=== PATIENT | male | born 1985 | race Caucasian/White ===

== ENCOUNTER → 2020-08-22 09:56 | Outpatient (BNVA) | payer SELFPAY | PROVIDERS: Visit Provider Internal Medicine | DX: F11.20 Opioid dependence, uncomplicated (principal); Z51.81 Encounter for therapeutic drug level monitoring | CPT/HCPCS: 80305; 99212 ==

== ENCOUNTER → 2020-09-11 10:59 | Outpatient (BNVA) | payer OTHER, SELFPAY | PROVIDERS: Visit Provider Internal Medicine | DX: F11.20 Opioid dependence, uncomplicated (principal) | CPT/HCPCS: 80305; 99211 ==

== ENCOUNTER → 2020-09-25 10:04 | Outpatient (BNVA) | payer OTHER, SELFPAY | PROVIDERS: PCP Internal Medicine; Referring Provider Internal Medicine; Visit Provider Internal Medicine | DX: F11.20 Opioid dependence, uncomplicated (principal) | CPT/HCPCS: 80305; 99211 ==

== ENCOUNTER → 2020-10-09 10:23 | Outpatient (BNVA) | payer OTHER, SELFPAY | PROVIDERS: Visit Provider Internal Medicine | DX: Z76.89 Persons encountering health services in other specified circumstances (principal) ==

== ENCOUNTER → 2020-10-23 11:41 | Outpatient (BNVA) | payer OTHER, SELFPAY | PROVIDERS: Visit Provider Internal Medicine | DX: Z76.89 Persons encountering health services in other specified circumstances (principal) ==

== ENCOUNTER → 2020-11-13 13:27 | Outpatient (BNVA) | payer OTHER, SELFPAY | PROVIDERS: Visit Provider Internal Medicine | DX: Z76.89 Persons encountering health services in other specified circumstances (principal) ==

== ENCOUNTER → 2020-11-30 10:12 | Outpatient (BNVA) | payer OTHER, SELFPAY | PROVIDERS: Visit Provider Internal Medicine | DX: Z76.89 Persons encountering health services in other specified circumstances (principal) ==

== ENCOUNTER → 2020-12-14 15:15 | Outpatient (BNVA) | payer OTHER, SELFPAY | PROVIDERS: Visit Provider Internal Medicine | DX: Z13.89 Encounter for screening for other disorder (principal) | CPT/HCPCS: 99212 ==

== ENCOUNTER → 2020-12-21 10:16 | Outpatient (BNVA) | payer OTHER, SELFPAY | PROVIDERS: Visit Provider Internal Medicine | DX: F11.20 Opioid dependence, uncomplicated (principal); F13.10 Sedative, hypnotic or anxiolytic abuse, uncomplicated; F15.10 Other stimulant abuse, uncomplicated; F12.90 Cannabis use, unspecified, uncomplicated | CPT/HCPCS: 80305; 99212 ==

== ENCOUNTER → 2020-12-28 15:31 | Outpatient (BNVA) | payer OTHER, SELFPAY | PROVIDERS: Visit Provider Internal Medicine | DX: F11.99 Opioid use, unspecified with unspecified opioid-induced disorder (principal); F13.10 Sedative, hypnotic or anxiolytic abuse, uncomplicated; F15.10 Other stimulant abuse, uncomplicated; F12.90 Cannabis use, unspecified, uncomplicated | CPT/HCPCS: 80305; 99212 ==

== ENCOUNTER → 2021-01-15 15:36 | Outpatient (BNVA) | payer OTHER, SELFPAY | PROVIDERS: Visit Provider Internal Medicine | DX: F11.99 Opioid use, unspecified with unspecified opioid-induced disorder (principal); F13.10 Sedative, hypnotic or anxiolytic abuse, uncomplicated; F15.10 Other stimulant abuse, uncomplicated | CPT/HCPCS: 80305; 99212 ==

== ENCOUNTER → 2021-01-29 14:13 | Outpatient (BNVA) | payer OTHER, SELFPAY | PROVIDERS: Visit Provider Internal Medicine | DX: Z51.81 Encounter for therapeutic drug level monitoring (principal) | CPT/HCPCS: 80305; 99211 ==

== ENCOUNTER 2021-02-13 10:03 | Outpatient (REF) | payer OTHER, SELFPAY ==
[2021-02-16 20:36] LABS: Buprenorphine 64 ng/mL; Norbuprenorphine 370 ng/mL
== END 2021-02-13 10:04 | disposition home or self-care (01) ==
LOC: HO.LAB 10:03
PROVIDERS: Visit Provider Internal Medicine
DX: F11.99 Opioid use, unspecified with unspecified opioid-induced disorder (principal); Z51.81 Encounter for therapeutic drug level monitoring
CPT/HCPCS: 80305; 80348; 99211

== ENCOUNTER → 2021-02-20 08:59 | Outpatient (BNVA) | payer OTHER, SELFPAY | PROVIDERS: Visit Provider Internal Medicine | DX: Z51.81 Encounter for therapeutic drug level monitoring (principal); Z79.899 Other long term (current) drug therapy | CPT/HCPCS: 80305; 99211 ==

== ENCOUNTER → 2021-02-27 09:03 | Outpatient (BNVA) | payer OTHER, SELFPAY | PROVIDERS: Visit Provider Internal Medicine | DX: Z51.81 Encounter for therapeutic drug level monitoring (principal) | CPT/HCPCS: 80305; 99211 ==

== ENCOUNTER → 2021-03-13 09:12 | Outpatient (BNVA) | payer OTHER, SELFPAY | PROVIDERS: Visit Provider Internal Medicine | DX: Z51.81 Encounter for therapeutic drug level monitoring (principal); F11.99 Opioid use, unspecified with unspecified opioid-induced disorder | CPT/HCPCS: 80305; 99211 ==

== ENCOUNTER → 2021-04-03 09:57 | Outpatient (BNVA) | payer OTHER, SELFPAY | PROVIDERS: Visit Provider Internal Medicine | DX: F11.99 Opioid use, unspecified with unspecified opioid-induced disorder (principal) | CPT/HCPCS: 80305; 99211 ==

== ENCOUNTER → 2021-05-01 09:08 | Outpatient (BNVA) | payer OTHER, SELFPAY | PROVIDERS: Visit Provider Internal Medicine | DX: Z51.81 Encounter for therapeutic drug level monitoring (principal); F11.20 Opioid dependence, uncomplicated | CPT/HCPCS: 80305; 99211 ==

== ENCOUNTER → 2021-05-29 09:37 | Outpatient (BNVA) | payer OTHER, SELFPAY | PROVIDERS: Visit Provider Internal Medicine | DX: Z51.81 Encounter for therapeutic drug level monitoring (principal) | CPT/HCPCS: 80305; 99211 ==

== ENCOUNTER → 2021-06-26 10:29 | Outpatient (BNVA) | payer OTHER, SELFPAY | PROVIDERS: Visit Provider Internal Medicine | DX: F11.99 Opioid use, unspecified with unspecified opioid-induced disorder (principal) | CPT/HCPCS: 80305; 99212 ==

== ENCOUNTER → 2021-07-26 11:53 | Outpatient (BNVA) | payer OTHER, SELFPAY | PROVIDERS: Visit Provider Internal Medicine | DX: F11.20 Opioid dependence, uncomplicated (principal); Z51.81 Encounter for therapeutic drug level monitoring; Z79.899 Other long term (current) drug therapy | CPT/HCPCS: 80305; 99212 ==

== ENCOUNTER → 2021-08-09 14:00 | Outpatient (BNVA) | payer OTHER, SELFPAY | PROVIDERS: Visit Provider Internal Medicine | DX: F11.90 Opioid use, unspecified, uncomplicated (principal) | CPT/HCPCS: 80305; 99212 ==

== ENCOUNTER → 2021-08-23 14:22 | Outpatient (BNVA) | payer OTHER, SELFPAY | PROVIDERS: Visit Provider Internal Medicine | DX: Z51.81 Encounter for therapeutic drug level monitoring (principal); F11.90 Opioid use, unspecified, uncomplicated | CPT/HCPCS: 80305; 99212 ==

== ENCOUNTER → 2021-09-06 14:41 | Outpatient (BNVA) | payer OTHER, SELFPAY | PROVIDERS: Visit Provider Internal Medicine | DX: F11.99 Opioid use, unspecified with unspecified opioid-induced disorder (principal); F12.10 Cannabis abuse, uncomplicated; F15.10 Other stimulant abuse, uncomplicated; F13.10 Sedative, hypnotic or anxiolytic abuse, uncomplicated; Z51.81 Encounter for therapeutic drug level monitoring | CPT/HCPCS: 80305; 99212 ==

== ENCOUNTER → 2021-09-13 13:20 | Outpatient (BNVA) | payer OTHER, SELFPAY | PROVIDERS: Visit Provider Internal Medicine | DX: Z51.81 Encounter for therapeutic drug level monitoring (principal); F11.90 Opioid use, unspecified, uncomplicated; F13.10 Sedative, hypnotic or anxiolytic abuse, uncomplicated | CPT/HCPCS: 80305; 99212 ==

== ENCOUNTER → 2021-10-01 13:15 | Outpatient (BNVA) | payer OTHER, SELFPAY | PROVIDERS: Visit Provider Internal Medicine | DX: F11.99 Opioid use, unspecified with unspecified opioid-induced disorder (principal); F15.10 Other stimulant abuse, uncomplicated; F12.10 Cannabis abuse, uncomplicated; F13.10 Sedative, hypnotic or anxiolytic abuse, uncomplicated; F17.210 Nicotine dependence, cigarettes, uncomplicated; Z51.81 Encounter for therapeutic drug level monitoring | CPT/HCPCS: 80305; 99212 ==

== ENCOUNTER → 2021-10-08 14:31 | Outpatient (BNVA) | payer OTHER, SELFPAY | PROVIDERS: Visit Provider Internal Medicine | DX: F11.20 Opioid dependence, uncomplicated (principal); Z51.81 Encounter for therapeutic drug level monitoring; Z79.899 Other long term (current) drug therapy | CPT/HCPCS: 80305; 99212 ==

== ENCOUNTER → 2021-10-22 14:06 | Outpatient (BNVA) | payer OTHER, SELFPAY | PROVIDERS: Visit Provider Internal Medicine | DX: F11.20 Opioid dependence, uncomplicated (principal); Z51.81 Encounter for therapeutic drug level monitoring; Z79.899 Other long term (current) drug therapy | CPT/HCPCS: 80305; 99212 ==

== ENCOUNTER → 2021-11-06 13:31 | Outpatient (BNVA) | payer OTHER, SELFPAY | PROVIDERS: Visit Provider Internal Medicine | DX: Z51.81 Encounter for therapeutic drug level monitoring (principal); F11.20 Opioid dependence, uncomplicated | CPT/HCPCS: 80305; 99212 ==

== ENCOUNTER → 2021-11-13 13:16 | Outpatient (BNVA) | payer OTHER, SELFPAY | PROVIDERS: Visit Provider Internal Medicine | DX: Z51.81 Encounter for therapeutic drug level monitoring (principal); F11.20 Opioid dependence, uncomplicated; F13.10 Sedative, hypnotic or anxiolytic abuse, uncomplicated | CPT/HCPCS: 80305; 99211 ==

== ENCOUNTER → 2021-11-20 14:35 | Outpatient (BNVA) | payer OTHER, SELFPAY | DX: Z51.81 Encounter for therapeutic drug level monitoring (principal); F11.20 Opioid dependence, uncomplicated | CPT/HCPCS: 80305; 99211 ==

== ENCOUNTER → 2021-12-06 14:25 | Outpatient (BNVA) | payer OTHER, SELFPAY | PROVIDERS: Visit Provider Internal Medicine ==

== ENCOUNTER → 2021-12-23 15:10 | Outpatient (BNVA) | payer OTHER, SELFPAY | PROVIDERS: Visit Provider Internal Medicine | DX: Z51.81 Encounter for therapeutic drug level monitoring (principal); F11.20 Opioid dependence, uncomplicated | CPT/HCPCS: 80305; 99211 ==

== ENCOUNTER → 2022-01-03 14:53 | Outpatient (BNVA) | payer OTHER, SELFPAY | PROVIDERS: Visit Provider Internal Medicine | DX: Z51.81 Encounter for therapeutic drug level monitoring (principal); F11.20 Opioid dependence, uncomplicated | CPT/HCPCS: 80305; 99211 ==

== ENCOUNTER → 2022-01-17 15:01 | Outpatient (BNVA) | payer OTHER, SELFPAY | PROVIDERS: Visit Provider Internal Medicine | DX: Z51.81 Encounter for therapeutic drug level monitoring (principal); F11.20 Opioid dependence, uncomplicated | CPT/HCPCS: 80305 ==

== ENCOUNTER → 2022-01-31 09:56 | Outpatient (BNVA) | payer OTHER, SELFPAY | PROVIDERS: Visit Provider Internal Medicine | DX: Z51.81 Encounter for therapeutic drug level monitoring (principal); F11.20 Opioid dependence, uncomplicated | CPT/HCPCS: 80305; 99211 ==

== ENCOUNTER → 2022-02-12 08:49 | Outpatient (BNVA) | payer OTHER, SELFPAY | PROVIDERS: Visit Provider Internal Medicine | DX: Z51.81 Encounter for therapeutic drug level monitoring (principal); F11.20 Opioid dependence, uncomplicated | CPT/HCPCS: 80305; 99211 ==

== ENCOUNTER → 2022-02-26 13:14 | Outpatient (BNVA) | payer OTHER, SELFPAY | PROVIDERS: Visit Provider Internal Medicine | DX: Z51.81 Encounter for therapeutic drug level monitoring (principal); F11.20 Opioid dependence, uncomplicated | CPT/HCPCS: 80305; 99212 ==

== ENCOUNTER → 2022-03-14 11:03 | Outpatient (BNVA) | payer OTHER, SELFPAY | PROVIDERS: Visit Provider Internal Medicine | DX: Z51.81 Encounter for therapeutic drug level monitoring (principal); F11.20 Opioid dependence, uncomplicated | CPT/HCPCS: 80305; 99212 ==

== ENCOUNTER → 2022-03-21 10:15 | Outpatient (BNVA) | payer OTHER, SELFPAY | PROVIDERS: Visit Provider Internal Medicine | DX: Z51.81 Encounter for therapeutic drug level monitoring (principal); F11.20 Opioid dependence, uncomplicated | CPT/HCPCS: 80305; 99212 ==

== ENCOUNTER → 2022-04-04 11:20 | Outpatient (BNVA) | payer OTHER, SELFPAY | PROVIDERS: Visit Provider Internal Medicine | DX: Z51.81 Encounter for therapeutic drug level monitoring (principal); F11.20 Opioid dependence, uncomplicated | CPT/HCPCS: 80305; 99212 ==

== ENCOUNTER → 2022-04-18 11:38 | Outpatient (BNVA) | payer OTHER, SELFPAY | PROVIDERS: Visit Provider Internal Medicine | DX: F11.20 Opioid dependence, uncomplicated (principal) | CPT/HCPCS: 80305; 99212 ==

== ENCOUNTER 2022-04-18 17:13 | Outpatient (REF) | payer OTHER, SELFPAY ==
[2022-04-18 17:58] LABS: Fentanyl, urine Not Detected (Not Detect)
[2022-04-26 07:16] LABS: Buprenorphine 26
[2022-04-26 07:17] LABS: Naloxone 27; Norbuprenorphine 159
== END 2022-04-18 17:14 | disposition home or self-care (01) ==
LOC: HO.LNP 17:13
PROVIDERS: Visit Provider Internal Medicine
DX: F11.99 Opioid use, unspecified with unspecified opioid-induced disorder (principal); Z51.81 Encounter for therapeutic drug level monitoring
CPT/HCPCS: 80307; 80348; 80362

== ENCOUNTER → 2022-04-25 14:26 | Outpatient (BNVA) | payer OTHER, SELFPAY | PROVIDERS: Visit Provider Internal Medicine | DX: F11.20 Opioid dependence, uncomplicated (principal) | CPT/HCPCS: 80305; 99212 ==

== ENCOUNTER → 2022-05-09 14:23 | Outpatient (BNVA) | payer OTHER, SELFPAY | PROVIDERS: Visit Provider Internal Medicine | DX: F11.20 Opioid dependence, uncomplicated (principal) | CPT/HCPCS: 80305; 99212 ==

== ENCOUNTER → 2022-05-16 10:33 | Outpatient (BNVA) | payer OTHER, SELFPAY | PROVIDERS: Visit Provider Internal Medicine | DX: F11.20 Opioid dependence, uncomplicated (principal) | CPT/HCPCS: 80305; 99212 ==

== ENCOUNTER → 2022-06-04 13:36 | Outpatient (BNVA) | payer OTHER, SELFPAY | PROVIDERS: Visit Provider Internal Medicine | DX: Z51.81 Encounter for therapeutic drug level monitoring (principal); F11.20 Opioid dependence, uncomplicated | CPT/HCPCS: 80305; 99212 ==

== ENCOUNTER → 2022-07-01 13:51 | Outpatient (BNVA) | payer OTHER, SELFPAY | PROVIDERS: Visit Provider Internal Medicine | DX: F11.20 Opioid dependence, uncomplicated (principal) | CPT/HCPCS: 99212 ==

== ENCOUNTER → 2022-07-09 13:55 | Outpatient (BNVA) | payer OTHER, SELFPAY | PROVIDERS: Visit Provider Internal Medicine | DX: F11.20 Opioid dependence, uncomplicated (principal); Z51.81 Encounter for therapeutic drug level monitoring; Z79.899 Other long term (current) drug therapy | CPT/HCPCS: 99212 ==

== ENCOUNTER → 2022-07-18 14:24 | Outpatient (BNVA) | payer OTHER, SELFPAY | PROVIDERS: Visit Provider Internal Medicine | DX: F11.99 Opioid use, unspecified with unspecified opioid-induced disorder (principal); F12.99 Cannabis use, unspecified with unspecified cannabis-induced disorder; F15.99 Other stimulant use, unspecified with unspecified stimulant-induced disorder; F13.99 Sedative, hypnotic or anxiolytic use, unspecified with unspecified sedative, hypnotic or anxiolytic-induced disorder; Z51.81 Encounter for therapeutic drug level monitoring | CPT/HCPCS: 99212 ==

== ENCOUNTER → 2022-08-01 14:17 | Outpatient (BNVA) | payer OTHER, SELFPAY | PROVIDERS: Visit Provider Internal Medicine | DX: F11.20 Opioid dependence, uncomplicated (principal) | CPT/HCPCS: 99212 ==

== ENCOUNTER → 2022-08-08 15:31 | Outpatient (BNVA) | payer OTHER, SELFPAY | PROVIDERS: Visit Provider Internal Medicine | DX: Z51.81 Encounter for therapeutic drug level monitoring (principal); F11.20 Opioid dependence, uncomplicated | CPT/HCPCS: 99212 ==

== ENCOUNTER → 2022-08-29 10:41 | Outpatient (BNVA) | payer OTHER, SELFPAY | PROVIDERS: Visit Provider Internal Medicine | DX: F11.20 Opioid dependence, uncomplicated (principal); Z51.81 Encounter for therapeutic drug level monitoring; Z79.899 Other long term (current) drug therapy | CPT/HCPCS: 99212 ==

== ENCOUNTER → 2022-09-12 10:39 | Outpatient (BNVA) | payer OTHER, SELFPAY | PROVIDERS: Visit Provider Internal Medicine | DX: Z51.81 Encounter for therapeutic drug level monitoring (principal); F11.20 Opioid dependence, uncomplicated | CPT/HCPCS: 99212 ==

== ENCOUNTER → 2022-09-26 10:28 | Outpatient (BNVA) | payer OTHER, SELFPAY | PROVIDERS: Visit Provider Internal Medicine | DX: F11.20 Opioid dependence, uncomplicated (principal) | CPT/HCPCS: 99212 ==

== ENCOUNTER 2022-10-07 17:02 | Outpatient (REF) | payer OTHER, SELFPAY ==
[2022-10-07 17:27] LABS: Fentanyl, urine Not Detected (Not Detect)
== END 2022-10-07 17:03 | disposition home or self-care (01) ==
LOC: HO.LNP 17:02
PROVIDERS: Visit Provider Internal Medicine
DX: F11.20 Opioid dependence, uncomplicated (principal); Z51.81 Encounter for therapeutic drug level monitoring; Z79.899 Other long term (current) drug therapy
CPT/HCPCS: 80307; 99212

== ENCOUNTER → 2022-10-15 10:33 | Outpatient (BNVA) | payer OTHER, SELFPAY | PROVIDERS: Visit Provider Nurse Practitioner Psychiatric/Mental Health | DX: F11.20 Opioid dependence, uncomplicated (principal) | CPT/HCPCS: 80305; 99212 ==

== ENCOUNTER → 2022-10-21 09:33 | Outpatient (BNVA) | payer OTHER, SELFPAY | PROVIDERS: Visit Provider Nurse Practitioner Psychiatric/Mental Health | DX: F11.20 Opioid dependence, uncomplicated (principal); F15.220 Other stimulant dependence with intoxication, uncomplicated; F13.20 Sedative, hypnotic or anxiolytic dependence, uncomplicated; F17.210 Nicotine dependence, cigarettes, uncomplicated; Z79.899 Other long term (current) drug therapy; Z51.81 Encounter for therapeutic drug level monitoring | CPT/HCPCS: 80305; 99212 ==

== ENCOUNTER → 2022-11-04 09:37 | Outpatient (BNVA) | payer OTHER, SELFPAY | PROVIDERS: PCP Student in an Organized Health Care Education/Training Program; Visit Provider Nurse Practitioner Psychiatric/Mental Health | DX: Z51.81 Encounter for therapeutic drug level monitoring (principal); F11.20 Opioid dependence, uncomplicated; F90.9 Attention-deficit hyperactivity disorder, unspecified type | CPT/HCPCS: 80305; 99212 ==

== ENCOUNTER → 2022-11-19 09:12 | Outpatient (BNVA) | payer OTHER, SELFPAY | PROVIDERS: PCP Student in an Organized Health Care Education/Training Program; Visit Provider Nurse Practitioner Psychiatric/Mental Health | DX: Z51.81 Encounter for therapeutic drug level monitoring (principal); F11.20 Opioid dependence, uncomplicated | CPT/HCPCS: 80305; 99212 ==

== ENCOUNTER → 2022-12-04 09:40 | Outpatient (BNVA) | payer OTHER, SELFPAY | PROVIDERS: PCP Student in an Organized Health Care Education/Training Program; Visit Provider Nurse Practitioner Psychiatric/Mental Health | DX: Z13.89 Encounter for screening for other disorder (principal) ==

== ENCOUNTER → 2023-01-01 09:13 | Outpatient (BNVA) | payer OTHER, SELFPAY | PROVIDERS: PCP Student in an Organized Health Care Education/Training Program; Visit Provider Nurse Practitioner Psychiatric/Mental Health | DX: F11.20 Opioid dependence, uncomplicated (principal); F90.9 Attention-deficit hyperactivity disorder, unspecified type; Z51.81 Encounter for therapeutic drug level monitoring; Z79.01 Long term (current) use of anticoagulants | CPT/HCPCS: 80305 ==

== ENCOUNTER → 2023-01-15 09:28 | Outpatient (BNVA) | payer OTHER, SELFPAY | PROVIDERS: PCP Student in an Organized Health Care Education/Training Program; Visit Provider Nurse Practitioner Psychiatric/Mental Health | DX: Z51.81 Encounter for therapeutic drug level monitoring (principal); F11.20 Opioid dependence, uncomplicated; F90.9 Attention-deficit hyperactivity disorder, unspecified type | CPT/HCPCS: 80305 ==

== ENCOUNTER → 2023-01-29 09:28 | Outpatient (BNVA) | payer OTHER, SELFPAY | PROVIDERS: PCP Student in an Organized Health Care Education/Training Program; Visit Provider Nurse Practitioner Psychiatric/Mental Health | DX: Z51.81 Encounter for therapeutic drug level monitoring (principal); Z79.899 Other long term (current) drug therapy; F11.10 Opioid abuse, uncomplicated ==

== ENCOUNTER → 2023-02-19 10:28 | Outpatient (BNVA) | payer OTHER, SELFPAY | PROVIDERS: PCP Student in an Organized Health Care Education/Training Program; Visit Provider Nurse Practitioner Psychiatric/Mental Health | DX: F11.20 Opioid dependence, uncomplicated (principal); Z51.81 Encounter for therapeutic drug level monitoring; Z79.899 Other long term (current) drug therapy | CPT/HCPCS: 80305 ==

== ENCOUNTER → 2023-03-19 10:11 | Outpatient (BNVA) | payer OTHER, SELFPAY | PROVIDERS: PCP Student in an Organized Health Care Education/Training Program; Visit Provider Nurse Practitioner Psychiatric/Mental Health | DX: F11.20 Opioid dependence, uncomplicated (principal); F90.9 Attention-deficit hyperactivity disorder, unspecified type; Z79.899 Other long term (current) drug therapy | CPT/HCPCS: 80305 ==

== ENCOUNTER → 2023-04-16 09:42 | Outpatient (BNVA) | payer OTHER, SELFPAY | PROVIDERS: PCP Student in an Organized Health Care Education/Training Program; Visit Provider Nurse Practitioner Psychiatric/Mental Health | DX: Z51.81 Encounter for therapeutic drug level monitoring (principal); F11.20 Opioid dependence, uncomplicated; F90.9 Attention-deficit hyperactivity disorder, unspecified type | CPT/HCPCS: 80305 ==

== ENCOUNTER 2023-05-15 09:10 | Outpatient (REF) | payer OTHER, SELFPAY ==
[2023-05-15 10:53] LABS: Alanine Aminotransferase 13 U/L (0-40); Albumin Level 4.3 g/dL (3.5-5.0); Alkaline Phosphatase 49 U/L (39-117); Anion Gap 14 (12-20); Aspartate Amino Transferase 14 U/L (5-37); Bilirubin Total 2.4 mg/dL (0.0-1.0); Blood Urea Nitrogen 18 mg/dL (9-16); Calcium 9.4 mg/dL (8.4-10.2); Carbon Dioxide 25 mmol/L (22-29); Chloride 106 mmol/L (96-108); Estimated Glomerular Filt Rate > 60; Glucose Random 107 mg/dL (60-115); Potassium 3.6 mmol/L (3.3-5.1); Sodium 141 mmol/L (135-145); Total Protein 7.2 g/dL (6.5-8.0)
[2023-05-15 11:09] LABS: HBS Num1 198.82 mIU/mL (0-7.99); HBc Num1 0.05 S/CO (0.00-0.79); HIV AB/AG Nonreactive (Nonreactive); HIV Num 1 0.08 S/CO (0.00-0.99); Hepatitis A Antibody IgM 0.21 Index (0-0.79); Hepatitis B Core Antibody Nonreactive (Nonreactive); Hepatitis B Surface Antigen Negative (Negative); ~HepC Num1 0.14 S/CO (0.00-0.79); ~Hepatitis A Antibody IgM Nonreactive (Nonreactive); ~Hepatitis B Surface Antibody REACTIVE (Nonreactive); ~Hepatitis C Antibody Nonreactive (Nonreactive)
== END 2023-05-15 09:11 | disposition home or self-care (01) ==
LOC: HO.LAB 09:10
PROVIDERS: Visit Provider Nurse Practitioner Psychiatric/Mental Health
DX: Z11.4 Encounter for screening for human immunodeficiency virus [HIV] (principal); F11.20 Opioid dependence, uncomplicated; F90.9 Attention-deficit hyperactivity disorder, unspecified type; Z79.899 Other long term (current) drug therapy
CPT/HCPCS: 36415; 80053; 86704; 86706; 86709; 86803; 87340; 87389

== ENCOUNTER 2023-07-10 11:47 | Outpatient (AMB) | payer OTHER, SELFPAY ==
--- NOTE | 2023-07-10 11:50 | MHC.OFFVIS ---
Intake Vital Signs 07/10/23 11:53 BP 116/78 Blood Pressure Location Lt radial Position Sitting Pulse 80 Pulse Source Pulse Oximeter Pulse Oximetry (%) 99 Oxygen Delivery Method Room Air Intake Visit Reasons: MAT Visit Intake Note: The patient presents for a mat visit Senior Rd Engineer Required: No Allergies No Known Allergies Allergy (Verified 07/10/23 11:54) Do you need a note to return to daycare/school/sports/work: No HPI MAT Visit HPI Details Patient presents for follow-up. Currently prescribed Suboxone 16 mg daily. Patient has missed last 2 appointments. Reports that he continues to abstain from cocaine. Will be moving out of his apartment in the near future. No questions or concerns related to recovery at this time [facility] Medical History Amphetamine abuse Benzodiazepine abuse Marijuana use Opioid use disorder Social History Patient Tobacco Use Status: Current everyday Tobacco user Tobacco use type: Cigarette Cigarettes Per Day: 20 Years Smoked: 10 Review of Systems Const Reports as per HPI and Reports no additional complaints Physical Exam Vital Signs: Last Vital Signs Pulse 80 07/10/23 11:53 BP 116/78 07/10/23 11:53 Pulse Ox 99 07/10/23 11:53 Oxygen Delivery Method Room Air 07/10/23 11:53 Const General: cooperative and no acute distress Nutritional Appearance: thin Psych Appearance: grossly normal Speech and movement: Clear speech present Affect: normal affect Attitude: cooperative Thought process: Normal thought process present Thought content: Normal thought content present Insight: Fair insight present (Psych) Assessment & Plan Assessment & Plan (1) Opioid use disorder: Code(s): F11.99 - Opioid use, unspecified with unspecified opioid-induced disorder Plan: Continue Suboxone at current dose Follow up 2 weeks (2) ADHD (attention deficit hyperactivity disorder): Code(s): F90.9 - Attention-deficit hyperactivity disorder, unspecified type Plan: Vyvanse refilled Medications: Refilled buprenorphine-naloxone 8-2 mg (Suboxone) 2 film sublingual DAILY 28 ea 0RF lisdexamfetamine (Vyvanse) Partial Fill upon patient request. 50 mg PO DAILY 30 caps 0RF Coding Level of Care Code Est Pt Level 3 (26519) Diagnoses Opioid use disorder F11.99 ADHD (attention deficit hyperactivity disorder) F90.9
[2023-07-10 11:53] VITALS: BP 116/78; PULSE 80; O2SAT 99
== END 2023-07-10 12:02 | disposition home or self-care (01) ==
LOC: HO.HCC 11:48
PROVIDERS: PCP Student in an Organized Health Care Education/Training Program; Visit Provider Nurse Practitioner Psychiatric/Mental Health
DX: F11.99 Opioid use, unspecified with unspecified opioid-induced disorder (principal); F90.9 Attention-deficit hyperactivity disorder, unspecified type
CPT/HCPCS: 99213

== ENCOUNTER → 2023-07-10 11:47 | Outpatient (BNVA) | payer OTHER, SELFPAY | PROVIDERS: PCP Student in an Organized Health Care Education/Training Program; Visit Provider Nurse Practitioner Psychiatric/Mental Health ==

== ENCOUNTER 2023-07-27 11:23 | Outpatient (AMB) | payer OTHER, SELFPAY ==
--- NOTE | 2023-07-27 11:25 | A.OFFVIS_ITS ---
Intake Vital Signs 07/27/23 11:33 BP 118/72 Blood Pressure Location Lt radial Position Sitting Pulse 78 Pulse Source Pulse Oximeter Pulse Oximetry (%) 96 Oxygen Delivery Method Room Air Intake Visit Reasons: MAT Visit Intake Note: the patient presents for a mat visit Hydro Mechanic Required: No Allergies No Known Allergies Allergy (Verified 07/27/23 11:26) Do you need a note to return to daycare/school/sports/work: No HPI MAT Visit HPI Details Patient presents for follow-up and 1st Sublocade injection. Patient has no questions regarding injection and is looking forward to getting it. Still taking Vyvanse daily finds that helpful however he finds that some days he still struggles to be organized. Discussed importance implementing strategies allow him to organized his day. [facility] Medical History Amphetamine abuse Benzodiazepine abuse Marijuana use Opioid use disorder Social History Patient Tobacco Use Status: Current everyday Tobacco user Tobacco use type: Cigarette Cigarettes Per Day: 20 Years Smoked: 10 Review of Systems Const Reports as per HPI and Reports no additional complaints Physical Exam Vital Signs: Last Vital Signs Pulse 78 07/27/23 11:33 BP 118/72 07/27/23 11:33 Pulse Ox 96 07/27/23 11:33 Oxygen Delivery Method Room Air 07/27/23 11:33 Const General: cooperative and no acute distress Nutritional Appearance: thin Psych Appearance: grossly normal Speech and movement: Clear speech present Affect: normal affect Attitude: cooperative Thought process: Normal thought process present Thought content: Normal thought content present Insight: Fair insight present (Psych) Office Meds Sublocade 300 mg/1.5 mL solution,extended release subcutaneous syringe Performing Provider: Anushka Ely CNP Performing Location: [facility] Administered by: Brenda High RN on 07/28/23 16:40 Dose Route Admin Location Dispensed Lot Number Expiration Date [facility] Automotive Internet Sales Manager 300 mg subcut RLQ 1.5 mL [id number] 01/13/25 [address]-0 [employer] Comments: T/W reviewed BUP INJ education, pt to leave INJ site alone, monitor for s/s of infection, pain, swelling, redness, heat, fever, discharge and call the [facility] with questions/concerns. Pt verbalized understanding. Pt tolerated the injection. Results AMB 14 Panel Urine Drug Screen Urine Marijuana (THC) Positive Last Edit by Priscilla Huang CMA on 07/27/23 11:38 Urine Cocaine Negative Last Edit by Priscilla Huang CMA on 07/27/23 11:38 Urine Morphine Negative Last Edit by Priscilla Huang CMA on 07/27/23 11:38 Urine Methamphetamine Negative Last Edit by Priscilla Huang CMA on 07/27/23 11:38 Urine Amphetamine Positive Last Edit by Priscilla Huang CMA on 07/27/23 11:3 8 Urine Benzodiazepine Positive Last Edit by Priscilla Huang CMA on 07/27/23 11:38 Urine Barbiturates Negative Last Edit by Priscilla Huang CMA on 07/27/23 11: 38 Urine Methadone Negative Last Edit by Priscilla Huang CMA on 07/27/23 11:38 Urine Buprenorphine Positive Last Edit by Priscilla Huang CMA on 07/27/23 11 :38 Urine Tricyclic Antidepressant Negative Last Edit by Priscilla Huang CMA on 07/27/23 11:38 Urine MDMA Positive Last Edit by Priscilla Huang CMA on 07/27/23 11:38 Urine Oxycodone Negative Last Edit by Priscilla Huang CMA on 07/27/23 11:38 Urine Phencyclidine Negative Last Edit by Priscilla Huang CMA on 07/27/23 11 :38 Urine Propoxyphene Negative Last Edit by Priscilla Huang CMA on 07/27/23 11: 38 Results Reviewed Results Reviewed: Laboratory Last Values POC Urine Buprenorphine Positive 07/27/23 11:26 POC Urine Morphine Negative 07/27/23 11:26 POC Urine Oxycodone Negative 07/27/23 11:26 POC Urine Methadone Negative 07/27/23 11:26 POC Urine Propoxyphene Negative 07/27/23 11:26 POC Urine Barbiturates Negative 07/27/23 11:26 POC U Tricyclic Antidpr Negative 07/27/23 11:26 POC Urine PCP Negative 07/27/23 11:26 POC Ur Amphetamines Positive 07/27/23 11:26 POC Ur Methamphetamine Negative 07/27/23 11:26 POC Urine MDMA Positive 07/27/23 11:26 POC Ur Benzodiazepine Positive 07/27/23 11:26 POC Urine Cocaine Negative 07/27/23 11:26 POC Ur Marijuana (THC) Positive 07/27/23 11:26 Assessment & Plan Assessment & Plan (1) Opioid use disorder: Code(s): F11.99 - Opioid use, unspecified with unspecified opioid-induced disorder Plan: * Tolerated injection * Follow-up 4 weeks Orders: Orders AMB Buprenorphine Injection - Patient Supplied 07/27/23 F11.99 - Opioid use, unspecified with unspecified opioid-induced disorder AMB 14 Panel Urine Drug Screen 07/27/23 Z51.81 - Encounter for therapeutic drug level monitoring Coding Level of Care Code Est Pt Level 3 (38373) Diagnoses Opioid use disorder F11.99
[2023-07-27 11:33] VITALS: BP 118/72; PULSE 78; O2SAT 96
== END 2023-07-27 14:38 | disposition home or self-care (01) ==
LOC: HO.HCC 11:23
PROVIDERS: PCP Student in an Organized Health Care Education/Training Program; Visit Provider Nurse Practitioner Psychiatric/Mental Health
DX: F11.99 Opioid use, unspecified with unspecified opioid-induced disorder (principal)
CPT/HCPCS: 99213; Q9992

== ENCOUNTER → 2023-07-27 11:23 | Outpatient (BNVA) | payer OTHER, SELFPAY | PROVIDERS: PCP Student in an Organized Health Care Education/Training Program; Visit Provider Nurse Practitioner Psychiatric/Mental Health | DX: F11.20 Opioid dependence, uncomplicated (principal) | CPT/HCPCS: 80305; 96372 ==

== ENCOUNTER 2023-08-25 11:33 | Outpatient (AMB) | payer OTHER, SELFPAY ==
--- NOTE | 2023-08-25 11:38 | MHC.OFFVIS ---
Intake Vital Signs 08/25/23 11:42 BP 110/72 Blood Pressure Location Lt radial Position Sitting Pulse 81 Pulse Source Pulse Oximeter Pulse Oximetry (%) 98 Oxygen Delivery Method Room Air Intake Visit Reasons: Sub Inj Intake Note: the patient presents for a sub inj Contract Management Specialist Required: No Allergies No Known Allergies Allergy (Verified 08/25/23 11:38) Do you need a note to return to daycare/school/sports/work: No HPI Sub Inj HPI Details Patient presents for OUD treatment follow up and sublocade injection. Denies any cravings or urges over the past month, states he experienced some breakthrough withdrawal symptoms for the last week and has been needing to use his films. Reports he was sneezing more frequently and experiencing diarrhea. Pt recently started on Vyvanse, reporting he feels as though the side effects are more mild than adderall and he likes that. Pt unsure yet how effective med is, stating it's too soon to tell . Reports he has been sleeping well. [facility] Medical History Amphetamine abuse Benzodiazepine abuse Marijuana use Opioid use disorder Social History Patient Tobacco Use Status: Current everyday Tobacco user Tobacco use type: Cigarette Cigarettes Per Day: 20 Years Smoked: 10 Review of Systems Const Reports as per HPI and Reports no additional complaints Neuro Reports no additional complaints Psych Reports no additional complaints Physical Exam Vital Signs: Last Vital Signs Pulse 81 08/25/23 11:42 BP 110/72 08/25/23 11:42 Pulse Ox 98 08/25/23 11:42 Oxygen Delivery Method Room Air 08/25/23 11:42 Const General: cooperative, healthy appearing, no acute distress, alert and awake Nutritional Appearance: average body habitus Orientation/consciousness: patient oriented x3 Limitations: no limitations Resp Effort & Inspection: normal respiratory effort Neuro General: patient oriented x3 Psych Appearance: grossly normal Speech and movement: Normal speech and movement present Attitude: cooperative Thought process: Normal thought process present Office Meds Sublocade 300 mg/1.5 mL solution,extended release subcutaneous syringe Performing Provider: Anushka Ely CNP Performing Location: [facility] Administered by: Noris Abraham NP on 08/25/23 12:03 Dose Route Admin Location Dispensed Lot Number Expiration Date [employer] Primer Inserting Machine Operator 300 mg subcut LLQ 1.5 mL [id number] 12/16/24 [address]-8 [employer]. Comments: Pt tolerated injection well, denies complications with initial injection last month. Educated on signs and symptoms of infection. encouraged to call [facility] with any questions or concerns. Assessment & Plan Assessment & Plan (1) Opioid use disorder: Code(s): F11.99 - Opioid use, unspecified with unspecified opioid-induced disorder Plan: Tolerated injection Follow-up 4 weeks Orders: Orders AMB Buprenorphine Injection - Patient Supplied 08/25/23 F11.99 - Opioid use, unspecified with unspecified opioid-induced disorder Coding Level of Care Code Est Pt Level 3 (05472) Diagnoses Opioid use disorder F11.99
[2023-08-25 11:42] VITALS: BP 110/72; PULSE 81; O2SAT 98
== END 2023-08-25 13:02 | disposition home or self-care (01) ==
PROVIDERS: PCP Student in an Organized Health Care Education/Training Program; Visit Provider Nurse Practitioner Psychiatric/Mental Health
DX: F11.99 Opioid use, unspecified with unspecified opioid-induced disorder (principal)
CPT/HCPCS: 99213

== ENCOUNTER → 2023-08-25 11:33 | Outpatient (BNVA) | payer OTHER, SELFPAY | PROVIDERS: PCP Student in an Organized Health Care Education/Training Program; Visit Provider Nurse Practitioner Psychiatric/Mental Health | DX: F11.20 Opioid dependence, uncomplicated (principal) | CPT/HCPCS: 96372; Q9992 ==

== ENCOUNTER 2023-09-24 10:27 | Outpatient (AMB) | payer OTHER, SELFPAY ==
--- NOTE | 2023-09-24 10:41 | A.OFFVIS_ITS ---
Intake Intake Visit Reasons: Sub Inj Allergies No Known Allergies Allergy (Verified 08/25/23 11:38) HPI Sub Inj HPI Details Patient presents for [place] treatment follow up Currently prescribed Sublocade q monthly Tolerating injection--however towards the end of the month starts to feel withdrawal sx. for him it is pain in his knees Unable to fill Vyvanse --requires a Prior auth [facility] Medical History Amphetamine abuse Benzodiazepine abuse Marijuana use Opioid use disorder Social History Patient Tobacco Use Status: Current everyday Tobacco user Tobacco use type: Cigarette Cigarettes Per Day: 20 Years Smoked: 10 Review of Systems Const Reports as per HPI and Reports difficulty sleeping Physical Exam Const General: cooperative, healthy appearing, no acute distress, alert and awake Nutritional Appearance: average body habitus Orientation/consciousness: patient oriented x3 Limitations: no limitations Resp Effort & Inspection: normal respiratory effort Neuro General: patient oriented x3 Psych Appearance: grossly normal Speech and movement: Normal speech and movement present Attitude: cooperative Thought process: Normal thought process present Office Meds Sublocade 100 mg/0.5 mL solution,extended release subcutaneous syringe Performing Provider: Anushka Ely CNP Performing Location: [facility] Administered by: Yani Musa on 09/24/23 11:07 Dose Route Admin Location Dispensed Lot Number Expiration Date [facility] Electrician Substation 100 mg subcut RUQ 0.5 mL [id number] 07/17/24 [address]-1 [employer]. Comments: Pt tolerated injection well. Educated on signs/symptoms of infection, encouraged to call the [facility] with questions or concerns. Assessment & Plan Assessment & Plan (1) Opioid use disorder: Code(s): F11.99 - Opioid use, unspecified with unspecified opioid-induced disorder Plan: * tolerated injection * follo wup 4 weeks Orders: Orders AMB Buprenorphine Injection - Patient Supplied 09/24/23 F11.99 - Opioid use, unspecified with unspecified opioid-induced disorder Coding Level of Care Code Est Pt Level 3 (71140) Diagnoses Opioid use disorder F11.99
== END 2023-09-24 11:21 | disposition home or self-care (01) ==
PROVIDERS: PCP Student in an Organized Health Care Education/Training Program; Visit Provider Nurse Practitioner Psychiatric/Mental Health
DX: F11.99 Opioid use, unspecified with unspecified opioid-induced disorder (principal)
CPT/HCPCS: 99213

== ENCOUNTER → 2023-09-24 10:27 | Outpatient (BNVA) | payer OTHER, SELFPAY | PROVIDERS: PCP Student in an Organized Health Care Education/Training Program; Visit Provider Nurse Practitioner Psychiatric/Mental Health | DX: F11.20 Opioid dependence, uncomplicated (principal); F15.20 Other stimulant dependence, uncomplicated; F13.20 Sedative, hypnotic or anxiolytic dependence, uncomplicated; F12.20 Cannabis dependence, uncomplicated; F17.210 Nicotine dependence, cigarettes, uncomplicated; Z71.51 Drug abuse counseling and surveillance of drug abuser; Z79.899 Other long term (current) drug therapy | CPT/HCPCS: 96372; Q9992 ==

== ENCOUNTER 2023-11-03 11:08 | Outpatient (AMB) | payer OTHER, SELFPAY ==
--- NOTE | 2023-11-03 11:09 | MHC.AM.SUB ---
Intake Vital Signs 11/03/23 11:14 BP 140/90 H Blood Pressure Location Lt radial Position Sitting Pulse 96 Pulse Source Pulse Oximeter Pulse Oximetry (%) 98 Oxygen Delivery Method Room Air Intake Visit Reasons: Sub Inj Intake Note: the patient is here for a mat visit Objects Conservator Required: No Allergies No Known Allergies Allergy (Verified 11/03/23 11:19) Do you need a note to return to daycare/school/sports/work: No HPI Sub Inj HPI Details Patient presents for follow up and Sublocade injection Voiced frustration with insurance not covering increased dose of vyvanse. Initially reporting mild withdrawal sx with injection, however patient is overdue by more than a week [facility] Medical History (Updated 11/05/23 @ 14:56 by Anushka Ely CNP) Marijuana use Amphetamine abuse Benzodiazepine abuse Opioid use disorder Social History Patient Tobacco Use Status: Current everyday Tobacco user Tobacco use type: Cigarette Cigarettes Per Day: 20 Years Smoked: 10 Review of Systems Const Reports as per HPI Physical Exam Vital Signs: Last Vital Signs Pulse 96 11/03/23 11:14 BP 140/90 H 11/03/23 11:14 Pulse Ox 98 11/03/23 11:14 Oxygen Delivery Method Room Air 11/03/23 11:14 Const General: cooperative, healthy appearing, no acute distress, alert and awake Nutritional Appearance: average body habitus Orientation/consciousness: patient oriented x3 Limitations: no limitations Resp Effort & Inspection: normal respiratory effort Neuro General: patient oriented x3 Psych Appearance: grossly normal Speech and movement: Normal speech and movement present Attitude: cooperative Thought process: Normal thought process present Office Meds Sublocade 100 mg/0.5 mL solution,extended release subcutaneous syringe Performing Provider: Anushka Ely CNP Performing Location: [facility] Administered by: Mirian Hamm RN on 11/03/23 11:38 Dose Route Admin Location Dispensed Lot Number Expiration Date [facility] Closing Supervisor 100 mg subcut LUQ 0.5 mL [id number] 12/17/24 [address]-1 [employer]. Comments: Pt tolerated injection well. He denies any SE from last injection. SE to monitor for and report were reviewed. Educated on S/S of infection. Encouraged to call [facility] with questions/concerns. Assessment & Plan Assessment & Plan (1) Opioid use disorder, severe, in sustained remission: Code(s): F11.21 - Opioid dependence, in remission (2) ADHD (attention deficit hyperactivity disorder): Code(s): F90.9 - Attention-deficit hyperactivity disorder, unspecified type Plan: will trial concerta Plan tolerated injection follow up 4 weeks Orders: Orders AMB Buprenorphine Injection - Patient Supplied 11/03/23 F11.99 - Opioid use, unspecified with unspecified opioid-induced disorder Medications: New methylphenidate HCl ER (Concerta) Partial Fill upon patient request. 27 mg PO DAILY 30 tabs 0RF Discontinued lisdexamfetamine (Vyvanse) Partial Fill upon patient request. Discontinued Reason: Doctor's Order 60 mg PO QAM 30 caps 0RF Coding Level of Care Code Est Pt Level 3 (89798) Diagnoses Opioid use disorder, severe, in sustained remission F11.21 ADHD (attention deficit hyperactivity disorder) F90.9
[2023-11-03 11:14] VITALS: BP 140/90; PULSE 96; O2SAT 98
== END 2023-11-03 11:37 | disposition home or self-care (01) ==
PROVIDERS: PCP Student in an Organized Health Care Education/Training Program; Visit Provider Nurse Practitioner Psychiatric/Mental Health
DX: F11.21 Opioid dependence, in remission (principal); F90.9 Attention-deficit hyperactivity disorder, unspecified type
CPT/HCPCS: 99213

== ENCOUNTER → 2023-11-03 11:08 | Outpatient (BNVA) | payer OTHER, SELFPAY | PROVIDERS: PCP Student in an Organized Health Care Education/Training Program; Visit Provider Nurse Practitioner Psychiatric/Mental Health | DX: F11.20 Opioid dependence, uncomplicated (principal); F90.9 Attention-deficit hyperactivity disorder, unspecified type | CPT/HCPCS: 96372; Q9992 ==

== ENCOUNTER 2023-12-03 09:12 | Outpatient (AMB) | payer OTHER, SELFPAY ==
--- NOTE | 2023-12-03 09:10 | AM.OFFVISNUR ---
Intake Vital Signs 12/03/23 09:17 BP 136/86 Blood Pressure Location Lt radial Position Sitting Pulse 76 Pulse Source Pulse Oximeter Pulse Oximetry (%) 98 Oxygen Delivery Method Room Air Intake Visit Reasons: Sub Inj Intake Note: The patient presents today for a RGM [employer] inj Donations Attendant Required: No Allergies No Known Allergies Allergy (Verified 12/03/23 09:18) Do you need a note to return to daycare/school/sports/work: No Nursing Note Patient in good spirits, smiling, engaged in conversation. States he is very excited to start Brixadi as the sublocade was too painful . Patient tolerated injection well, with no stated complications, he was educated and understands to call [facility] with any questions. He asked to see Anushka next visit to talk about his sleep patterns, he states he hasnt had oppiod cravings in months but feels he is afraid to stop MAT only for sleep reasons. Stating At this point I was taking the subs for sleep . Appointment made with Anushka next visit, I will see him for injection. Office Meds buprenorphine 96 mg/0.27 mL solution,exten.rel.subcutaneous syringe Performing Provider: Anushka Ely CNP Performing Location: [facility] Administered by: Jaylene Pond RN on 12/03/23 09:19 Dose Route Admin Location Dispensed Lot Number Expiration Date [facility] Warehouse Distribution Manager 96 mg subcut RLQ 0.27 mL [id number] 09/15/25 [id number] [employer]. Comments: Pt tolerated injection well. He denies any complications from last injection. Educated on S/S of infection. Encouraged to call [facility] with questions/concerns. Coding Assessment & Plan Assessment & Plan Orders: Orders AMB Buprenorphine Injection - Patient Supplied Today F11.21 - Opioid dependence, in remission
[2023-12-03 09:17] VITALS: BP 136/86; PULSE 76; O2SAT 98
== END 2023-12-03 09:51 | disposition home or self-care (01) ==
PROVIDERS: PCP Student in an Organized Health Care Education/Training Program
DX: F11.21 Opioid dependence, in remission (principal)

== ENCOUNTER → 2023-12-03 09:12 | Outpatient (BNVA) | payer OTHER, SELFPAY | PROVIDERS: PCP Student in an Organized Health Care Education/Training Program | DX: F11.20 Opioid dependence, uncomplicated (principal) | CPT/HCPCS: 96372; C9154 ==

== ENCOUNTER 2023-12-18 13:06 | Outpatient (AMB) | payer OTHER, SELFPAY ==
--- NOTE | 2023-12-18 13:10 | A.OFFVISCC_ITS ---
Intake Vital Signs 12/18/23 13:15 BP 134/82 Blood Pressure Location Lt radial Position Sitting Pulse 92 Pulse Source Pulse Oximeter Pulse Oximetry (%) 97 Oxygen Delivery Method Room Air Intake Visit Reasons: mat Intake Note: the patient presents for a mat visit Api Architect Required: No Allergies No Known Allergies Allergy (Verified 12/18/23 13:15) Do you need a note to return to daycare/school/sports/work: No HPI mat HPI Details Patient presents to check in regarding ADHD medications Insurance would not cover increase in Vyvanse dose, which patient found to be effective Concerta trial--patient reports having stomach upset. Adderall was prescribed in the past, per his report, and was effective. Discussed other strategies that are effective with ADHD, including routine, setting alarms for earlier than needed, planning in advance as much as possible He reports he has been getting to work late for no other reason than he can't out of his house on time. [facility] Medical History (Updated 11/05/23 @ 14:56 by Anushka Ely CNP) Marijuana use Amphetamine abuse Benzodiazepine abuse Opioid use disorder Social History Patient Tobacco Use Status: Current everyday Tobacco user Tobacco use type: Cigarette Cigarettes Per Day: 20 Years Smoked: 10 Review of Systems Const Reports as per HPI Physical Exam Vital Signs: Last Vital Signs Pulse 92 12/18/23 13:15 BP 134/82 12/18/23 13:15 Pulse Ox 97 12/18/23 13:15 Oxygen Delivery Method Room Air 12/18/23 13:15 Const General: cooperative, healthy appearing, no acute distress, alert and awake Nutritional Appearance: average body habitus Orientation/consciousness: patient oriented x3 Limitations: no limitations Resp Effort & Inspection: normal respiratory effort Neuro General: patient oriented x3 Psych Appearance: grossly normal Speech and movement: Normal speech and movement present Attitude: cooperative Thought process: Normal thought process present Assessment & Plan Assessment & Plan (1) ADHD (attention deficit hyperactivity disorder): Code(s): F90.9 - Attention-deficit hyperactivity disorder, unspecified type Plan: * d/c Concerta * Adderall 20mg XR * follow up 2 weeks in office (2) Opioid use disorder, severe, in sustained remission: Code(s): F11.21 - Opioid dependence, in remission Plan: * next Brixadi injection schedule for 2 weeks--patient very happy with this injection and feels positive about the transition Medications: New dextroamphetamine-amphetamine 20 mg ER (Adderall XR) Partial Fill upon patient request. 20 mg PO DAILY 30 caps 0RF Discontinued methylphenidate HCl ER (Concerta) Partial Fill upon patient request. Discontinued Reason: Patient Completed Course 27 mg PO DAILY 30 tabs 0RF Coding Level of Care Code Est Pt Level 4 (38875) Diagnoses ADHD (attention deficit hyperactivity disorder) F90.9 Opioid use disorder, severe, in sustained remission F11.21
[2023-12-18 13:15] VITALS: BP 134/82; PULSE 92; O2SAT 97
== END 2023-12-18 13:26 | disposition home or self-care (01) ==
PROVIDERS: PCP Student in an Organized Health Care Education/Training Program; Visit Provider Nurse Practitioner Psychiatric/Mental Health
DX: F11.21 Opioid dependence, in remission (principal)
CPT/HCPCS: 99214

== ENCOUNTER → 2023-12-18 13:06 | Outpatient (BNVA) | payer OTHER, SELFPAY | PROVIDERS: PCP Student in an Organized Health Care Education/Training Program; Visit Provider Nurse Practitioner Psychiatric/Mental Health ==

== ENCOUNTER 2024-01-05 11:43 | Outpatient (AMB) | payer OTHER, SELFPAY ==
--- NOTE | 2024-01-05 11:43 | AM.OFFVISNUR ---
Intake Vital Signs 01/05/24 11:49 Height 5 ft 10.5 in Weight 141 lb 8 oz BMI 20.0 BP 122/78 Blood Pressure Location Lt radial Position Sitting Pulse 83 Pulse Source Pulse Oximeter Pulse Oximetry (%) 98 Oxygen Delivery Method Room Air Intake Visit Reasons: mat visit Intake Note: the patient presents for his brixadi inj Walking Dragline Oiler Required: No Allergies No Known Allergies Allergy (Verified 12/18/23 13:15) Do you need a note to return to daycare/school/sports/work: No Nursing Note Patient to clinic today for injection. Pt alert and oriented x4, in good spirits, louie any breakthrough cravings. This is his second brixadi injection and he states he likes it , and has had no side effects. Will follow up in 4 weeks. Office Meds buprenorphine 96 mg/0.27 mL solution,exten.rel.subcutaneous syringe Performing Provider: Anushka Ely CNP Performing Location: [facility] Administered by: Jaylene Pond RN on 01/05/24 11:55 Dose Route Admin Location Dispensed Lot Number Expiration Date [facility] V Belt Inspector 96 mg subcut 0.27 mL [id number] 09/15/25 61320-720-16 [employer]. Comments: Patient tolerated injection with no stated or noted side effects. Agrees to call [facility] with any comments, questions or concerns. Coding Assessment & Plan Assessment & Plan Orders: Orders AMB Buprenorphine Injection - Patient Supplied Today F11.21 - Opioid dependence, in remission
[2024-01-05 11:49] VITALS: BP 122/78; PULSE 83; O2SAT 98
== END 2024-01-05 16:17 | disposition home or self-care (01) ==
PROVIDERS: PCP Student in an Organized Health Care Education/Training Program
DX: F11.21 Opioid dependence, in remission (principal)

== ENCOUNTER → 2024-01-05 11:43 | Outpatient (BNVA) | payer OTHER, SELFPAY | PROVIDERS: PCP Student in an Organized Health Care Education/Training Program | DX: F11.20 Opioid dependence, uncomplicated (principal) | CPT/HCPCS: 96372; C9154 ==

== ENCOUNTER 2024-02-09 11:03 | Outpatient (AMB) | payer OTHER, SELFPAY ==
--- NOTE | 2024-02-09 11:07 | AM.OFFVISNUR ---
Intake Intake Visit Reasons: Brix Inj Allergies No Known Allergies Allergy (Verified 12/18/23 13:15) Nursing Note Patient presented as a walk in for his brixadi injection. Patient was very quiet, states that he is good . A+O x4, did acknowledge that he hasnt felt cravings in a long time , and requested to stretch out the time between injections further than 4 weeks. We booked for 5 weeks out and he acknowledges and verbally agrees to call if he needs to come in sooner. Office Meds buprenorphine 96 mg/0.27 mL solution,exten.rel.subcutaneous syringe Performing Provider: Anushka Ely CNP Performing Location: [facility] Administered by: Jaylene Pond RN on 02/09/24 11:15 Dose Route Admin Location Dispensed Lot Number Expiration Date [facility] Chief Physical Therapist 96 mg subcut 0.27 mL [id number] 09/15/25 74473-921-10 [employer]. Coding Assessment & Plan Assessment & Plan Orders: Orders AMB Buprenorphine Injection - Patient Supplied Today F11.21 - Opioid dependence, in remission
== END 2024-02-09 11:15 | disposition home or self-care (01) ==
PROVIDERS: PCP Student in an Organized Health Care Education/Training Program
DX: F11.21 Opioid dependence, in remission (principal)

== ENCOUNTER → 2024-02-09 11:03 | Outpatient (BNVA) | payer OTHER, SELFPAY | PROVIDERS: PCP Student in an Organized Health Care Education/Training Program | CPT/HCPCS: 96372; C9154 ==

== ENCOUNTER 2024-03-17 10:34 | Outpatient (AMB) | payer OTHER, SELFPAY ==
[2024-03-17 10:38] VITALS: BP 106/68; PULSE 70; O2SAT 99
--- NOTE | 2024-03-17 10:38 | AM.OFFVISNUR ---
Intake Vital Signs 03/17/24 10:38 BP 106/68 Blood Pressure Location Lt brachial Position Sitting Pulse 70 Pulse Source Pulse Oximeter Pulse Oximetry (%) 99 Oxygen Delivery Method Room Air Intake Visit Reasons: Brix Inj Allergies No Known Allergies Allergy (Verified 03/17/24 10:38) Nursing Note Patient to office today for injection. Alert and oriented x4, smiling, states he was on his way into work. Wants to try going another 5 weeks to see how cravings are, he is interested in possibly coming off the injection in the upcoming months. Office Meds buprenorphine 96 mg/0.27 mL solution,exten.rel.subcutaneous syringe Performing Provider: Noris Abraham NP Performing Location: [facility] Administered by: Jaylene Pond RN on 03/17/24 11:07 Dose Route Admin Location Dispensed Lot Number Expiration Date [facility] [employer] Ladle Tender 96 mg subcut CHINYERE 0.27 mL [id number] 09/15/25 15487-792-36 [employer]. Coding Assessment & Plan Assessment & Plan Orders: Orders AMB Buprenorphine Injection - Patient Supplied Today F11.21 - Opioid dependence, in remission Medications: New buprenorphine ER 96 mg (0.27 mL) subcut ONCE 0.27 mL 0RF F11.21 - Opioid dependence, in remission
== END 2024-03-17 10:51 | disposition home or self-care (01) ==
PROVIDERS: PCP Student in an Organized Health Care Education/Training Program
DX: F11.21 Opioid dependence, in remission (principal)

== ENCOUNTER → 2024-03-17 10:34 | Outpatient (BNVA) | payer OTHER, SELFPAY | PROVIDERS: PCP Student in an Organized Health Care Education/Training Program | DX: F11.20 Opioid dependence, uncomplicated (principal) | CPT/HCPCS: 96372; C9154 ==

== ENCOUNTER 2024-04-21 09:39 | Outpatient (AMB) | payer OTHER, SELFPAY ==
--- NOTE | 2024-04-21 12:02 | AM.OFFVISNUR ---
Intake Intake Visit Reasons: Brix Inj Allergies No Known Allergies Allergy (Verified 03/17/24 10:38) Nursing Note Patient to clinic for injection today, A+O x4, speaking in clear/full sentences. Denies any complications from previous injection, states recovery is going well. Verbally agrees to call [facility] with any concerns or questions. Office Meds buprenorphine 96 mg/0.27 mL solution,exten.rel.subcutaneous syringe Performing Provider: Anushka Ely CNP Performing Location: [facility] Administered by: Jaylene Pond RN on 04/22/24 09:29 Dose Route Admin Location Dispensed Lot Number Expiration Date [facility] Behavioral Health Therapist 96 mg subcut LLQ 0.27 mL [id number] 09/15/25 48620-163-40 [employer]. Coding Assessment & Plan Assessment & Plan Orders: Orders AMB Buprenorphine Injection - Patient Supplied 04/21/24 F11.90 - Opioid use, unspecified, uncomplicated Medications: New buprenorphine ER 96 mg (0.27 mL) subcut ONCE 0.27 mL 0RF F11.90 - Opioid use, unspecified, uncomplicated
== END 2024-04-21 09:48 | disposition home or self-care (01) ==
PROVIDERS: PCP Student in an Organized Health Care Education/Training Program
DX: F11.90 Opioid use, unspecified, uncomplicated (principal)

== ENCOUNTER → 2024-04-21 09:39 | Outpatient (BNVA) | payer OTHER, SELFPAY | PROVIDERS: PCP Student in an Organized Health Care Education/Training Program | DX: F11.20 Opioid dependence, uncomplicated (principal); Z51.81 Encounter for therapeutic drug level monitoring | CPT/HCPCS: 96372; C9154 ==

== ENCOUNTER 2024-04-29 11:09 | Outpatient (AMB) | payer OTHER, SELFPAY ==
--- NOTE | 2024-04-29 11:28 | A.OFFVISCC_ITS ---
Vital Signs 04/29/24 11:34 Weight 131 lb Intake Visit Reasons: walk in Allergies No Known Allergies Allergy (Verified 03/17/24 10:38) HPI HPI walk in: Details: Patient presents as a walk in requesting to meet with provider Appearing sad, anxious. He reports he recently broke up with his girlfriend and is living with his father He also states that he was terminated from his job, but was able to get his job back. He is requesting assistance with managing his ADHD and depression He has not been taking his adderall in a few months due to his ex partner being angry about it. He feels his ability to focus, organize and carry out simple every day functions are extremely challenging for him He has reached out [facility] (or [employer]) to establish services. He denies any substance use, including prescribed stimulants. [facility] Medical History (Updated 04/29/24 @ 13:25 by Anushka Ely CNP) Marijuana use Amphetamine abuse Benzodiazepine abuse Opioid use disorder Social History Patient Tobacco Use Status: Current everyday Tobacco user Tobacco use type: Cigarette Cigarettes Per Day: 20 Years Smoked: 10 Review of Systems Const Reports as per HPI Physical Exam Const General: cooperative and anxious Nutritional Appearance: thin Orientation/consciousness: patient oriented x3 Neuro General: patient oriented x3 Psych Appearance: grossly normal Speech and movement: Normal speech and movement present Affect: Sad affect present Attitude: cooperative Thought process: Normal thought process present Thought content: Normal thought content present and Depressive thoughts present Insight: Good insight present (Psych) Judgement: Good judgement present (Psych) Results AMB 14 Panel Urine Drug Screen Urine Marijuana (THC) Positive Last Edit by Jaylene Pond RN on 04/29/24 11:32 Urine Cocaine Negative Last Edit by Jaylene Pond RN on 04/29/24 11:32 Urine Morphine Negative Last Edit by Jaylene Pond RN on 04/29/24 11:32 Urine Methamphetamine Negative Last Edit by Jaylene Pond RN on 04/29/24 11:32 Urine Amphetamine Negative Last Edit by Jaylene Pond RN on 04/29/24 11:32 Urine Benzodiazepine Negative Last Edit by Jaylene Pond RN on 04/29/24 11 :32 Urine Barbiturates Negative Last Edit by Jaylene Pond RN on 04/29/24 11:3 2 Urine Methadone Negative Last Edit by Jaylene Pond RN on 04/29/24 11:32 Urine Buprenorphine Positive Last Edit by Jaylene Pond RN on 04/29/24 11: 32 Urine Tricyclic Antidepressant Negative Last Edit by Jaylene Pond RN on 04/29/24 11:32 Urine MDMA Negative Last Edit by Jaylene Pond RN on 04/29/24 11:32 Urine Oxycodone Negative Last Edit by Jaylene Pond RN on 04/29/24 11:32 Urine Phencyclidine Negative Last Edit by Jaylene Pond RN on 04/29/24 11: 32 Urine Propoxyphene Negative Last Edit by Jaylene Pond RN on 04/29/24 11:3 2 Results Reviewed Results Reviewed: Laboratory Last Values POC Urine Buprenorphine Positive 04/29/24 11:30 POC Urine Morphine Negative 04/29/24 11:30 POC Urine Oxycodone Negative 04/29/24 11:30 POC Urine Methadone Negative 04/29/24 11:30 POC Urine Propoxyphene Negative 04/29/24 11:30 POC Urine Barbiturates Negative 04/29/24 11:30 POC U Tricyclic Antidpr Negative 04/29/24 11:30 POC Urine PCP Negative 04/29/24 11:30 POC Ur Amphetamines Negative 04/29/24 11:30 POC Ur Methamphetamine Negative 04/29/24 11:30 POC Urine MDMA Negative 04/29/24 11:30 POC Ur Benzodiazepine Negative 04/29/24 11:30 POC Urine Cocaine Negative 04/29/24 11:30 POC Ur Marijuana (THC) Positive 04/29/24 11:30 Assessment & Plan Assessment & Plan (1) ADHD (attention deficit hyperactivity disorder): Code(s): F90.9 - Attention-deficit hyperactivity disorder, unspecified type Category: Medical Qualifiers: Attention deficit-hyperactivity disorder type: predominantly inattentive Qualified Code(s): F90.0 - Attention-deficit hyperactivity disorder, predominantly inattentive type Plan: * restart adderall 20mg QD * encouraged to continue follow up with agency to start therapy * follow up one month telehealth (for medications) Orders: Orders AMB 14 Panel Urine Drug Screen Today F11.21 - Opioid dependence, in remission Medications: Refilled dextroamphetamine-amphetamine 20 mg ER (Adderall XR) Partial Fill upon patient request. 20 mg PO DAILY 30 caps 0RF
== END 2024-04-29 11:12 | disposition home or self-care (01) ==
PROVIDERS: PCP Student in an Organized Health Care Education/Training Program; Visit Provider Nurse Practitioner Psychiatric/Mental Health
DX: F11.21 Opioid dependence, in remission (principal); F90.0 Attention-deficit hyperactivity disorder, predominantly inattentive type
CPT/HCPCS: 99214

== ENCOUNTER → 2024-04-29 11:09 | Outpatient (BNVA) | payer OTHER, SELFPAY | PROVIDERS: PCP Student in an Organized Health Care Education/Training Program; Visit Provider Nurse Practitioner Psychiatric/Mental Health | DX: F90.0 Attention-deficit hyperactivity disorder, predominantly inattentive type (principal) | CPT/HCPCS: 80305 ==

== ENCOUNTER 2024-06-03 13:06 | Outpatient (AMB) | payer OTHER, SELFPAY ==
--- NOTE | 2024-06-03 13:05 | A.OFFVISCC_ITS ---
Intake Visit Reasons: MAT Tele Allergies No Known Allergies Allergy (Verified 03/17/24 10:38) [facility] HPI MAT Tele: Details: Patient presents for follow up via telehealth Currently at [facility] on [address] Patient guarded on the phone, reporting he does not know why he is currently there. Expressing that his GF and father made things up to get him there Gently challenged patient on this belief, he acknowledged that he had recently used oxycodone Minimizing this, and not wishing to discuss any further. [facility] Medical History (Updated 04/29/24 @ 13:25 by Anushka Ely CNP) Marijuana use Amphetamine abuse Benzodiazepine abuse Opioid use disorder Social History Patient Tobacco Use Status: Current everyday Tobacco user Tobacco use type: Cigarette Cigarettes Per Day: 20 Years Smoked: 10 Review of Systems Const Reports as per [facility] Telehealth Telehealth Telehealth Platform: Telephone Location of provider rendering services: practice address Location of patient: other Patient Identification confirmed using: Name, : Yes Telehealth method: voice only Patient verbally consented to treatment: Yes Patient verbally consented to billing insurance company: Yes Minutes spent on Phone/Video with Pt.: 15 Assessment & Plan Assessment & Plan (1) Opioid use disorder, severe, in sustained remission: Code(s): F11.21 - Opioid dependence, in remission Category: Medical Plan: * follow up 3 weeks telehealth * due for [place]. unclear if he will receive it there or if he will transition to films for the time being
== END 2024-06-03 13:37 | disposition home or self-care (01) ==
PROVIDERS: PCP Student in an Organized Health Care Education/Training Program; Visit Provider Nurse Practitioner Psychiatric/Mental Health
DX: F11.21 Opioid dependence, in remission (principal)
CPT/HCPCS: 99213

== ENCOUNTER → 2024-06-03 13:06 | Outpatient (BNVA) | payer OTHER, SELFPAY | PROVIDERS: PCP Student in an Organized Health Care Education/Training Program; Visit Provider Nurse Practitioner Psychiatric/Mental Health ==

== ENCOUNTER 2024-07-07 10:53 | Outpatient (AMB) | payer OTHER, SELFPAY ==
--- NOTE | 2024-07-07 13:11 | AM.OFFVISNUR ---
Intake Visit Reasons: Brix Injection Allergies No Known Allergies Allergy (Verified 03/17/24 10:38) Nursing Note Patient Presents for brixadi Injection. Current Dose 128mg . Given in the CHINYERE with no noted or stated complication. Denies any issues with previous injection. Denies symptoms, and denies any break through cravings. Will follow up with RN in 4 weeks for injection. Will need to see provider and has a schedules appt in 1 week. Office Meds buprenorphine 128 mg/0.36 mL solution,ext.rel.subcutaneous syringe Performing Provider: Anushka Ely CNP Performing Location: [facility] Administered by: Jaylene Pond RN on 07/07/24 16:10 Dose Route Admin Location Dispensed Lot Number Expiration Date [facility] G[employer] Geographer 128 mg subcut CHINYERE 0.36 mL [id number] 09/15/25 49287-724-85 [employer]. Assessment & Plan Assessment & Plan Orders: Orders AMB Buprenorphine Injection - Patient Supplied 07/07/24 F11.21 - Opioid dependence, in remission
== END 2024-07-07 13:27 | disposition home or self-care (01) ==
PROVIDERS: PCP Student in an Organized Health Care Education/Training Program
DX: F11.21 Opioid dependence, in remission (principal)

== ENCOUNTER → 2024-07-07 10:53 | Outpatient (BNVA) | payer OTHER, SELFPAY | PROVIDERS: PCP Student in an Organized Health Care Education/Training Program | DX: F11.21 Opioid dependence, in remission (principal) | CPT/HCPCS: 96372; J0578 ==